=== PATIENT | female | born 1985 | race Caucasian/White ===

== ENCOUNTER 2016-03-15 18:48 | Emergency (ER) | payer OTHER ==
[~2016-03-15] VITALS: Ht 182.9 cm; Wt 93.0 kg
[~2016-03-15 18:48] MED LIST: IBUPROFEN600 M1 PO; KEFLEX500 M1 PO; KEFLEX500 MG PO; NAPROXEN500 MG PO; OXYCODONE HCL5 M1 PO; OXYCODONE HCL5 M2 PO; PERCOCET 5-3251 EACH PO
[2016-03-15 18:52] VITALS: BP 136/90
[2016-03-15] MEDS ORDERED: IBUPROFEN IB200 M1 PO (19:08)
[2016-03-15] MEDS ORDERED: AMOXICILLIN500 M3 PO (19:33)
--- NOTE | 2016-03-15 19:34 | ED THROAT/DENTAL COMPLAINT ---
History of Present Illness General Chief Complaint: Sore Throat, Dental Pain Stated Complaint: SORE THROAT Source: patient Exam Limitations: no limitations Vital Signs & Intake/Output Vital Signs & Intake/Output Vital Signs Date Time Temp Pulse Resp B/P Pulse O2 O2 Flow FiO2 Ox Delivery Rate 03/15 1852 98.6 97 18 136/90 100 Room Air Allergies Coded Allergies: NO KNOWN ALLERGIES (01/24/11) Reconcile Medications Amoxicillin 500 MG TABLET 1 TAB PO TID pharyngitis Ibuprofen (Ibuprofen Ib) 200 MG TABLET 3 TAB PO PRN PAIN/FEVER (Reported) Triage Note: PT STATSE SHE HAS HAD A SORE THROAT AND THINKS SHE HAS STREP BECAUSE HER ENTIRE FAMILY HAS IT. PT STATES IT FEELS LIKE SHE IS SWOLLOWING SAND. Triage Nurses Notes Reviewed? yes Onset: Abrupt Duration: day(s): (3), constant, continues in ED Timing: recent history Injury Environment: home Severity: moderate, severe No Modifying Factors: none : No Patient currently breastfeeds: No HPI: 30-year-old female comes into emergency room for further evaluation of sore throat and cough runny nose and congestion has been going on for the past 3 days. Patient reports that he began with a sore throat any other symptoms develop today. She reports that she remembers and her family have been diagnosed with strep throat. Denies any vomiting. Fever 102 at home. Denies any other associated symptoms. (KRANTHI TORRES) Past History Travel History Traveled to [place] past 21 day No Medical History Any Pertinent Medical History? 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 No (KRANTHI TORRES) Review of Systems Review of Systems Constitutional: Reports: see HPI. EENTM: Reports: see HPI. Respiratory: Reports: see HPI. Cardiovascular: Reports: no symptoms. GI: Reports: no symptoms. Genitourinary: Reports: no symptoms. Musculoskeletal: Reports: no symptoms. Skin: Reports: no symptoms. Neurological/Psychological: Reports: no symptoms. Hematologic/Endocrine: Reports: no symptoms. Immunologic/Allergic: Reports: no symptoms. All Other Systems: Reviewed and Negative (KRANTHI TORRES) Physical Exam Physical Exam General Appearance: well developed/nourished, no apparent distress, alert Head: atraumatic, normal appearance Eyes: Bilateral: normal appearance, PERRL, EOMI. Ears: Bilateral: canal normal, bleeding. Nose: normal inspection Mouth/Throat: normal mouth inspection, tonsillar exudate, pharyngeal erythema, Neck: normal inspection, lymphadenopathy (R), lymphadenopathy (L) Cardiovascular/Respiratory: regular rate/rhythm, no respiratory distress Back: normal inspection Neurologic/Psych: awake, alert, oriented x 3, normal gait, normal mood/affect Skin: intact, normal color Core Measures ACS in differential dx? No Severe Sepsis Present: No Septic Shock Present: No (KRANTHI TORRES) Progress Differential Diagnosis: aspirated tooth, carious tooth, epiglottitis, Ludwigs angina, meningitis, odontogenic abscess, sy-tonsillar abscess, pharyngeal for. body, stomatitis/gingivitis, strep pharyngitis, tooth fracture Plan of Care: Orders Procedure Date/time Status THROAT CULTURE W/QUICK STREP 03/15 2659 Active Comments: 03/15/2016 8:23:02 PM Patient clinically looks well. Nontoxic-appearing. In no apparent distress. Symptoms are most consistent with viral pharyngitis. Patient will require oral antibiotics. Follow-up with primary care doctor. Return if any other concerns worsening symptoms. (KRANTHI TORRES) Departure Departure Disposition: HOME OR SELF CARE Condition: Stable Clinical Impression Primary Impression: Viral pharyngitis Referrals: UNKNOWN (PCP/Family) Additional Instructions: Take amoxicillin as prescribed. Take up [id number] Mucinex D. Rest. Drink plenty of fluids. Motion Tylenol. Please go over all results of today's visit with your primary care doctor. Contact your primary care doctor to let them know you were here in the emergency room. There may be nonspecific findings which may not be related to your visit today here in the emergency room but may require further evaluation and chronic monitoring by your primary care doctor. If you had a laceration today the chance of foreign body always remains. You should follow-up with your primary care doctor for recheck in 3-5 days for a wound check. If you had an x-ray done there is a chance that a fracture could have been missed on initial read and you should follow-up with your primary care doctor for repeat x-rays if symptoms persist. If your blood pressure was elevated here in the emergency room please have rechecked by her primary care doctor within the next 48 hours by your primary care doctor. If you were prescribed a narcotic here in the emergency room or any type of controlled substances you're not allowed to drive while taking this medication or operate any type of heavy machinery. Narcotics can make you feel lightheaded dizziness nausea and can cause constipation. 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 Thank you for choosing [facility] emergency room. Please return to the emergency room immediately if you have any other concerns worsening of symptoms. Departure Forms: Customer Survey General Discharge Information Prescriptions: Current Visit Scripts Amoxicillin 1 TAB PO TID #30 TAB (KRANTHI TORRES) PA/SSRS REPORT DEVELOPER Co-Sign Statement Statement: ED Attending supervision documentation- [] I saw and evaluated the patient. I have also reviewed all the pertinent lab results and diagnostic results. I agree with the findings and the plan of care as documented in the PA's/SSRS REPORT DEVELOPER's documentation. [X] I have reviewed the ED Record and agree with the PA's/SSRS REPORT DEVELOPER's documentation. [] Additions or exceptions (if any) to the PAs/SSRS REPORT DEVELOPER's note and plan are summarized below: [] (ANIRUDH CRUZ,NATHALIE Irene)
== END 2016-03-15 19:50 ==
LOC: ERH 18:48
DX: J02.9 Acute pharyngitis, unspecified (principal)

== ENCOUNTER 2016-04-25 23:10 | Emergency (ER) | payer OTHER ==
[~2016-04-25] VITALS: Ht 182.9 cm; Wt 90.7 kg
[~2016-04-25 23:10] MED LIST changes: +AMOXICILLIN500 M3 PO; +IBUPROFEN IB200 M1 PO
--- NOTE | 2016-04-25 23:46 | ED GI/GU/ABDOMINAL COMPLAINT ---
History of Present Illness General Chief Complaint: Abdominal Pain/Flank Pain Stated Complaint: ABD PAIN, +V , + Source: patient Exam Limitations: no limitations Vital Signs & Intake/Output Vital Signs & Intake/Output Vital Signs Date Time Temp Pulse Resp B/P Pulse O2 O2 Flow FiO2 Ox Delivery Rate 04/26 0146 98.8 97 18 131/86 100 Room Air 04/25 2315 98.8 100 20 148/84 100 Room Air ED Intake and Output 04/26 0000 04/25 1200 Intake Total Output Total Balance Patient 200 lb Weight Allergies Coded Allergies: NO KNOWN ALLERGIES (04/25/16) Reconcile Medications Miconazole Nitrate (Miconazole 7) 100 MG SUPP.VAG 1 SUP VAG QDAY YEAST INFECTION Nitrofurantoin Monohyd/M-Cryst (Macrobid 100 MG Capsule) 100 MG CAPSULE 1 CAP PO BID UTI with food Triage Note: TRIAGE: PT TO ER C/C LOW ABD PAIN, INTERMITTENT X 1 WK. DESCRIBES SHARP. +NAUSEA, VOMITING IN THE MORNING. -DIARRHEA. LNBM YESTERDAY. -URINARY S/S. PT HAD + HOME TEST TONIGHT AND STATES HER PERIOD IS "2 MONTHS LATE, GIVE OR TAKE". 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 . STATES SHE WAS CONSIDERED A HIGH RISK WITH HER YOUNGEST DAUGHTER AND DELIVERED PREMATURELY SO IS CONCERNED ABOUT THIS PAIN. SPOKE WITH SAMANTHA HUYNH IN [facility] REGARDING PATIENT WHO WILL REMAIN IN ER FOR EVAL. Triage Nurses Notes Reviewed? yes ? y Is pt currently ? No Duration: hour(s): Timing: single episode today Quality/Severity: cramping Location: suprapubic Radiation: no radiation Activities at Onset: none Sexually Active: Yes Last Time You Were Sexual: less than 2 months ago Sexual Orientation: Heterosexual Use of Protection: No Modifying Factors: Worsens With: palpation. Associated Symptoms: dysuria HPI: 30-year-old woman history of high risk , almost had a miscarriage on her previous , presents with lower abdominal pain. She states that her last menstrual. Was in the beginning of February. Earlier today she developed lower abdominal pain. She did a test at home that was positive. She says, "I got really freaked out because of my last experience. I came here to make sure everything was okay." She notes no dysuria, vaginal discharge, vaginal bleeding. She is otherwise well and has no other concerns. Past History Travel History Traveled to [place] past 21 day No Medical History Any Pertinent Medical History? 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 No Review of Systems Review of Systems Constitutional: Reports: no symptoms. EENTM: Reports: no symptoms. Respiratory: Reports: no symptoms. Cardiovascular: Reports: no symptoms. GI: Reports: no symptoms. Genitourinary: Reports: no symptoms. Musculoskeletal: Reports: no symptoms. Skin: Reports: no symptoms. Neurological/Psychological: Reports: no symptoms. Hematologic/Endocrine: Reports: no symptoms. Immunologic/Allergic: Reports: no symptoms. All Other Systems: Reviewed and Negative Physical Exam Physical Exam General Appearance: well developed/nourished, mild distress Head: atraumatic, normal appearance Eyes: Bilateral: normal appearance. Ears, Nose, Throat, Mouth: hearing grossly normal Neck: normal inspection, supple, full range of motion, normal alignment Respiratory: normal breath sounds, chest non-tender, no respiratory distress, quiet respiration Cardiovascular: regular rate/rhythm Gastrointestinal: normal bowel sounds, soft, mild suprapubic tenderness. No rebound no guarding. Pelvic: cervix closed... discharge consistent with yeast infection. Back: normal inspection, normal range of motion Extremities: normal range of motion Neurologic/Psych: no motor/sensory deficits, awake, alert, oriented x 3 Skin: intact, normal color, warm/dry Core Measures ACS in differential dx? No Severe Sepsis Present: No Septic Shock Present: No Progress Differential Diagnosis: threatened AB, UTI/pyelo, Plan of Care: Orders Procedure Date/time Status TRICHOMONAS 04/26 52 Complete POTASSIUM HYDROXIDE (CARLOS ALBERTO) 04/26 52 Complete GENITAL CULTURE 04/26 52 Active CHLAMYDIA-GC DNA PROBE 04/26 52 Active URINALYSIS 04/25 2346 Complete HUMAN BETA HCG TITRE 04/25 2346 Complete COMPREHENSIVE METABOLIC PANEL 04/25 2346 Complete CBC WITHOUT DIFFERENTIAL 03/03 2346 Complete TYPE & SCREEN (NOT X-MATCH) 04/25 2345 Complete Current Medications Sig/Lindsey Start time Last Medication Dose Stop Time Status Admin Nitrofurantoin 100 MG ONCE ONE 04/26 329 CANr (Macrodantin 50MG 04/26 330 Cap) Laboratory Tests 04/25/162354: Urine Color YEL, Urine Clarity HAZY H, Urine pH 6.5, Ur Specific [place] 1.020, Urine Protein NEG, Urine Ketones NEG, Urine Nitrite NEG, Urine Bilirubin NEG, Urine Urobilinogen 0.2, Ur Leukocyte Esterase NEG, Ur Microscopic SEDIMENT EXAMINED, Urine WBC 1-3 H, Ur Epithelial Cells MOD H, Urine Bacteria MANY H, Urine Hemoglobin NEG, Urine Glucose NEG 04/25/162353: Anion Gap 10, Estimated GFR > 60, BUN/Creatinine Ratio 20.0, Glucose 95, Calcium 9.5, Total Bilirubin 0.4, AST 15, ALT 32, Alkaline Phosphatase 45, Total Protein 6.5, Albumin 3.7, Globulin 2.8, Albumin/Globulin Ratio 1.3, Beta HCG, Quant 87686.0, CBC w Diff NO MAN DIFF REQ, RBC 4.02 L, MCV 81.0, MCH 27.8, RDW 13.3, MPV 9.4, Gran % 75.8 H, Lymphocytes % 19.2 L, Monocytes % 4.4, Eosinophils % 0.4, Basophils % 0.2, Absolute Granulocytes 7.8 H, Absolute Lymphocytes 2.0, Absolute Monocytes 0.5, Absolute Eosinophils 0, Absolute Basophils 0, PUBS MCHC 34.3 Microbiology 04/26 114 GENITAL: GC DNA Probe - RECD 04/26 114 GENITAL: Chlamydia DNA Probe (KINZA) - RECD 04/26 114 GENITAL: CARLOS ALBERTO Preparation - COMP 04/26 114 GENITAL: Trichomonas Preparation - COMP 04/26 114 GENITAL: Genital Culture - RECD Diagnostic Imaging: Viewed by Me: Radiology Read. Discussed w/RAD: Radiology Read. Radiology Impression: transvag u/s.... hemorrhagic cyst... intrauterine Initial ED EKG: none Comments: PATIENT: JENNY LAMA PRESENT AGE: 30 PATIENT ACCOUNT NO: [id number] : 84 LOCATION: [facility] ORDERING PHYSICIAN: ANETTE WEINSTEIN MD SERVICE DATE: 04/26/16 EXAM TYPE: US - US-TRANSVAGINAL EXAMINATION: US TRANSVAGINAL CLINICAL INFORMATION: Lower abdominal pain/ COMPARISON: None available. TECHNIQUE: Real-time transabdominal and transvaginal pelvic ultrasound are performed using grayscale, color Doppler, and spectral Doppler technique. FINDINGS: Uterus measures 11.0 cm x 6.8 cm x 6.7 cm. Single live intrauterine gestational sac is appreciated. There is a gestational sac, yolk sac, and pole present. heart rate measures 160 bpm. The crown-rump length measures 1.73 cm correlating with a sonographic gestational age of 8 weeks 2 days. Cervical length is 5.46 cm. The cervix appears closed The right ovary measures 4.8 x 2.6 x 3.1 cm correlating with a volume of 20 mL. There is a 2.4 x 1.7 x 2.0 cm right ovarian cyst that exhibits low level internal echoes suggestive of a hemorrhagic cyst. Normal Doppler waveforms. The left ovary measures 2.9 x 1.9 x 2.4 cm with a volume of 6.8 mL. Normal Doppler waveforms. IMPRESSION: - Single live intrauterine with a heart rate of 160 bpm and a sonographic gestational age of 8 weeks 2 days. - There is a 2.4 x 1.7 x 2.0 cm complex right ovarian cyst, most likely a hemorrhagic cyst. There is no sonographic evidence of active ovarian torsion. DICTATED BY: NBA MILLS MD DATE/TIME DICTATED:04/26/16252 RENDERING EQUIPMENT TENDER:TERRY DATE/TIME TRANSCRIBED:04/26/16252 CONFIDENTIAL, DO NOT COPY WITHOUT APPROPRIATE AUTHORIZATION. <Electronically signed in Other Vendor System> SIGNED BY: NBA MILLS MD 04/26/16 0302 Departure Departure Disposition: STILL A PATIENT Condition: Stable Clinical Impression Primary Impression: Abdominal pain Secondary Impressions: , UTI (urinary tract infection), Vaginal yeast infection Referrals: PATIENT HAS NO PRIMARY CARE DR (PCP/Family) Departure Forms: Customer Survey General Discharge Information Prescriptions: Current Visit Scripts Miconazole Nitrate (Miconazole 7) 1 SUP VAG QDAY #7 SUP Nitrofurantoin Monohyd/M-Cryst (Macrobid 100 MG Capsule) 1 CAP PO BID #14 CAP with food Comments 04/26/16. 3;32am.... pt is well appearing at discharge... u/s with IUP and hemorrhagic cyst.... stable labs... pt safe for discharge with close follow up by overcoil stepper.
[2016-04-26 00:28] LABS: ABSOLUTE BASOPHIL COUNT 0 /CUMM (0.0-0.2); ABSOLUTE EOSINOPHIL COUNT 0 /CUMM (0.0-0.7); ABSOLUTE GRANULOCYTE CT 7.8 /CUMM (1.4-6.5); ABSOLUTE MONOCYTE COUNT 0.5 /CUMM (0.10-0.60); BASOPHIL % 0.2 % (0.0-2.0); EOSINOPHIL % 0.4 % (0-5); GRANULOCYTE % 75.8 % (42.2-75.2); HEMATOCRIT 32.6 % (37-47); MEAN CORPUSCULAR HGB 27.8 PG (27.0-31.0); MEAN CORPUSCULAR HGB CONC 34.3 G/DL (33.0-37.0); MEAN PLATELET VOLUME 9.4 FL (7.4-10.4); PLATELET COUNT 259 /CUMM (130-400); RBC DISTRIBUTION WIDTH 13.3 % (11.5-14.5); RED BLOOD CELL CT 4.02 /CUMM (4.20-5.40); WHITE BLOOD CELL COUNT 10.3 /CUMM (4.8-10.8)
[2016-04-26 01:46] VITALS: BP 131/86
--- NOTE | 2016-04-26 03:02 | ULTRASOUND REPORT ---
EXAMINATION: US TRANSVAGINAL CLINICAL INFORMATION: Lower abdominal pain/ COMPARISON: None available. TECHNIQUE: Real-time transabdominal and transvaginal pelvic ultrasound are performed using grayscale, color Doppler, and spectral Doppler technique. FINDINGS: Uterus measures 11.0 cm x 6.8 cm x 6.7 cm. Single live intrauterine gestational sac is appreciated. There is a gestational sac, yolk sac, and pole present. heart rate measures 160 bpm. The crown-rump length measures 1.73 cm correlating with a sonographic gestational age of 8 weeks 2 days. Cervical length is 5.46 cm. The cervix appears closed The right ovary measures 4.8 x 2.6 x 3.1 cm correlating with a volume of 20 mL. There is a 2.4 x 1.7 x 2.0 cm right ovarian cyst that exhibits low level internal echoes suggestive of a hemorrhagic cyst. Normal Doppler waveforms. The left ovary measures 2.9 x 1.9 x 2.4 cm with a volume of 6.8 mL. Normal Doppler waveforms. IMPRESSION: - Single live intrauterine with a heart rate of 160 bpm and a sonographic gestational age of 8 weeks 2 days. - There is a 2.4 x 1.7 x 2.0 cm complex right ovarian cyst, most likely a hemorrhagic cyst. There is no sonographic evidence of active ovarian torsion.
[2016-04-26] MEDS ORDERED: MACROBID 100 M100 MG PO (03:20)
[2016-04-26] MEDS ORDERED: MICONAZOLE 7100 MG VAG (03:20)
== END 2016-04-26 03:03 ==
LOC: ERH 23:10
PROVIDERS: Pediatrics
DX: O23.40 Unspecified infection of urinary tract in pregnancy, unspecified trimester (principal); B37.3 Candidiasis of vulva and vagina
CPT/HCPCS: 87070; 81001; 87491; 87591

== ENCOUNTER 2016-07-13 21:55 | Emergency (ER) | payer OTHER ==
[~2016-07-13] VITALS: Ht 182.9 cm; Wt 99.8 kg
[~2016-07-13 21:55] MED LIST changes: +MACROBID 100 M100 MG PO; +MICONAZOLE 7100 MG VAG
[2016-07-13 22:53] LABS: ABSOLUTE BASOPHIL COUNT 0 /CUMM (0.0-0.2); ABSOLUTE EOSINOPHIL COUNT 0 /CUMM (0.0-0.7); ABSOLUTE GRANULOCYTE CT 10.2 /CUMM (1.4-6.5); ABSOLUTE LYMPH COUNT 0.7 /CUMM (1.2-3.4); ABSOLUTE MONOCYTE COUNT 0.2 /CUMM (0.10-0.60); BASOPHIL % 0 % (0.0-2.0); EOSINOPHIL % 0.2 % (0-5); GRANULOCYTE % 91.8 % (42.2-75.2); HEMATOCRIT 35.9 % (37-47); MEAN CORPUSCULAR HGB 28.5 PG (27.0-31.0); MEAN CORPUSCULAR HGB CONC 33.8 G/DL (33.0-37.0); MEAN CORPUSCULAR VOLUME 84.2 FL (81.0-99.0); MEAN PLATELET VOLUME 9.1 FL (7.4-10.4); PLATELET COUNT 263 /CUMM (130-400); RED BLOOD CELL CT 4.27 /CUMM (4.20-5.40); WHITE BLOOD CELL COUNT 11.1 /CUMM (4.8-10.8)
--- NOTE | 2016-07-13 23:28 | ED GI/GU/ABDOMINAL COMPLAINT ---
History of Present Illness General Chief Complaint: Nausea, Vomiting, Diarrhea Stated Complaint: +NVD, 4 MONTHS PREG, X 1 DAY Source: patient Exam Limitations: no limitations Vital Signs & Intake/Output Vital Signs & Intake/Output Vital Signs Date Time Temp Pulse Resp B/P B/P Pulse O2 O2 Flow FiO2 Mean Ox Delivery Rate 07/14 0017 97.4 86 18 110/61 100 Room Air 07/13 2159 97.8 105 20 123/81 98 Room Air ED Intake and Output 07/14 0000 07/13 1200 Intake Total 0 Output Total Balance 0 Intake, Oral 0 Patient 220 lb Weight Weight Reported by Patient Measurement Method Allergies Coded Allergies: NO KNOWN ALLERGIES (UNKNOWN 07/13/16) Reconcile Medications Miconazole Nitrate (Miconazole 7) 100 MG SUPP.VAG 1 SUP VAG QDAY YEAST INFECTION Nitrofurantoin Monohyd/M-Cryst (Macrobid 100 MG Capsule) 100 MG CAPSULE 1 CAP PO BID UTI with food Ondansetron (Zofran Odt) 4 MG TAB.RAPDIS 1 TAB SL TID NAUSEA Triage Note: TRIAGE: PT TO ER C/C N/V/D. ONSET COUPLE DAYS. REPORTS HAS BEEN VOMITING ALL DAY "MAYBE 6 TIMES". REPORTS DIARRHEA X 3 TODAY. DENIES ANY PAIN. PT CURRENTLY 19 WEEKS . DUE DATE 12/03/2016. . PATIENT OF DR FU. DENIES COMPLICATIONS WITH . DENIES VAGINAL BLEEDING OR DISCHARGE. SPOKE WITH DARRIN IN CBC, PT TO REMAIN IN ER FOR EVAL. Triage Nurses Notes Reviewed? yes ? y Is pt currently ? No Onset: Abrupt Duration: day(s):, constant, continues in ED Timing: recent history No Modifying Factors: none HPI: 30-year-old female 4 months comes into emergency room for further evaluation of nausea vomiting and diarrhea and some mild cramping. Patient reports that she started with some mild diarrhea yesterday. Symptoms persisted today with some vomiting as well. More sudden onset symptoms today. Multiple episodes of each. Some mild cramping. Denies any vaginal bleeding or leakage of fluid. Dr. barton this her REPORTS DEVELOPER doctor. She denies any complications during the . (KRANTHI TORRES) Past History Travel History Traveled to [place] past 21 day No Medical History Any Pertinent Medical History? see below for history Neurological: NONE EENT: NONE Cardiovascular: NONE Respiratory: NONE Gastrointestinal: NONE Hepatic: NONE Renal: NONE Musculoskeletal: NONE Psychiatric: NONE Endocrine: NONE Blood Disorders: NONE Cancer(s): NONE MEDIA PRODUCER/Reproductive: NONE Tetanus Vaccine: 06/28/12 Surgical History Surgical History: non-contributory Psychosocial History Who do you live with Family Services at Home None What is your primary language Honduran Tobacco Use: Never used ETOH Use: occasional use Illicit Drug Use: denies illicit drug use Family History Hx Contributory? No (KRANTHI TORRES) Review of Systems Review of Systems Constitutional: Reports: no symptoms. EENTM: Reports: no symptoms. Respiratory: Reports: no symptoms. Cardiovascular: Reports: no symptoms. GI: Reports: see HPI. Genitourinary: Reports: no symptoms. Musculoskeletal: Reports: no symptoms. Skin: Reports: no symptoms. Neurological/Psychological: Reports: no symptoms. Hematologic/Endocrine: Reports: no symptoms. Immunologic/Allergic: Reports: no symptoms. All Other Systems: Reviewed and Negative (KRANTHI TORRES) Physical Exam Physical Exam General Appearance: well developed/nourished, no apparent distress, alert Head: atraumatic, normal appearance Eyes: Bilateral: normal appearance. Ears, Nose, Throat, Mouth: hearing grossly normal, moist mucous membrane Neck: normal inspection, full range of motion Respiratory: normal breath sounds, no respiratory distress Cardiovascular: regular rate/rhythm Gastrointestinal: soft, non-tender Back: normal inspection Extremities: normal range of motion Neurologic/Psych: awake, alert, oriented x 3, normal gait, normal mood/affect Skin: intact, normal color Core Measures ACS in differential dx? No Severe Sepsis Present: No Septic Shock Present: No (KRANTHI TORRES) Progress Differential Diagnosis: appendicitis, diverticulitis, ischemic bowel, intrauterine , ovarian cyst, ovarian torsion, PID/cervicitis, peptic ulcer, PUD/GERD, perforated viscous, threatened AB, UTI/pyelo Plan of Care: Orders Procedure Date/time Status Add-on Test (ER Only) 07/13 2353 Active CULTURE,URINE 07/13 225 Active URINALYSIS 07/13 2213 Complete LIPASE 07/13 2213 Complete COMPREHENSIVE METABOLIC PANEL 07/13 2213 Complete CBC WITHOUT DIFFERENTIAL 07/13 2213 Complete AMYLASE 07/13 2213 Complete Laboratory Tests 07/13/16 2251: Urinalysis LIGHT H, Urine Color YEL, Urine Clarity HAZY H, Urine pH 6.0, Ur Specific [place] >= 1.030, Urine Protein 30 H, Urine Ketones 40 H, Urine Nitrite NEG, Urine Bilirubin NEG@ICTO, Urine Urobilinogen 0.2, Ur Leukocyte Esterase NEG, Ur Microscopic SEDIMENT EXAMINED, Urine RBC RARE, Urine WBC 1-3 H , Ur Epithelial Cells MANY H, Urine Bacteria PACKD H, Hyaline Casts RARE H, Urine Mucus MANY H, Urine Hemoglobin NEG, Urine Glucose NEG 07/13/16 2235: Anion Gap 12, Estimated GFR > 60, BUN/Creatinine Ratio 14.0, Glucose 93, Calcium 9.0, Total Bilirubin 0.9, AST 22, ALT 47, Alkaline Phosphatase 56, Total Protein 7.0, Albumin 3.8, Globulin 3.2, Albumin/Globulin Ratio 1.2, Amylase 31, Lipase 34, CBC w Diff MAN DIFF ORDERED, RBC 4.27, MCV 84.2, MCH 28.5, RDW 13.0, MPV 9.1 , Gran % 91.8 H, Lymphocytes % 6.1 L, Monocytes % 1.9, Eosinophils % 0.2, Basophils % 0 L, Absolute Granulocytes 10.2 H, Segmented Neutrophils 84 H, Band Neutrophils 7 H, Absolute Lymphocytes 0.7 L, Lymphocytes 6 L, Monocytes 3, Absolute Monocytes 0.2, Absolute Eosinophils 0, Absolute Basophils 0, Platelet Estimate ADEQUATE, Hypochromic-Microcytic 1+, Anisocytosis 1+, PUBS MCHC 33.8 Microbiology 07/13 2251 URINE ROUT: Urine Culture - RECD Initial ED EKG: none (BRENNAN PLASENCIA,KRANTHI) Departure Departure Disposition: HOME OR SELF CARE Condition: Stable Clinical Impression Primary Impression: Gastroenteritis Referrals: UNKNOWN (PCP/Family) Additional Instructions: Take Zofran as prescribed. Drink plenty of fluids. Contact your REPORTS DEVELOPER doctor tomorrow. Return if any concerns worsening symptoms. Please go over all results of today's visit with your primary care doctor. Contact your primary care doctor to let them know you were here in the emergency room. There may be nonspecific findings which may not be related to your visit today here in the emergency room but may require further evaluation and chronic monitoring by your primary care doctor. If you had a laceration today the chance of foreign body always remains. You should follow-up with your primary care doctor for recheck in 3-5 days for a wound check. If you had an x-ray done there is a chance that a fracture could have been missed on initial read and you should follow-up with your primary care doctor for repeat x-rays if symptoms persist. If your blood pressure was elevated here in the emergency room please have rechecked by her primary care doctor within the next 48 hours by your primary care doctor. If you were prescribed a narcotic here in the emergency room or any type of controlled substances you're not allowed to drive while taking this medication or operate any type of heavy machinery. Narcotics can make you feel lightheaded dizziness nausea and can cause constipation. You may need to fish bait picker a stool softener. Thank you for choosing [facility] emergency room. Please return to the emergency room immediately if you have any other concerns worsening of symptoms. Departure Forms: Customer Survey General Discharge Information Prescriptions: Current Visit Scripts Ondansetron (Zofran Odt) 1 TAB SL TID #10 TAB Comments Patient clinically looks well. Patient reevaluated multiple times. Tolerating oral liquids here in the emergency room. Case discussed with Dr. Smith. Patient will go results with . Patient will need the protein in the urine to be followed up. Patient will also need the white blood cell and CBC to be repeated. Return if any other concerns. Patient understands and agrees with plan of care. Nontoxic-appearing. (BRENNAN PLASENCIA,KRANTHI) PA/MANAGER COUNCIL Co-Sign Statement Statement: ED Attending supervision documentation- [] I saw and evaluated the patient. I have also reviewed all the pertinent lab results and diagnostic results. I agree with the findings and the plan of care as documented in the PA's/MANAGER COUNCIL's documentation. [x] I have reviewed the ED Record and agree with the PA's/MANAGER COUNCIL's documentation. [] Additions or exceptions (if any) to the PAs/MANAGER COUNCIL's note and plan are summarized below: [] (JS CRUZ,ANETTE Chatman)
[2016-07-14] MEDS ORDERED: ZOFRAN ODT4 M1 SL (00:11)
[2016-07-14 00:17] VITALS: BP 110/61
== END 2016-07-14 00:23 ==
LOC: ERH 21:55
PROVIDERS: Pediatrics
DX: O99.612 Diseases of the digestive system complicating pregnancy, second trimester (principal); K52.9 Noninfective gastroenteritis and colitis, unspecified; Z3A.00 Weeks of gestation of pregnancy not specified
CPT/HCPCS: 81001; 87086; 96361; 96374; J2405